=== PATIENT | female | born 1995 | race Caucasian/White ===

== ENCOUNTER 2017-02-08 04:30 | Emergency (ER) | payer OTHER ==
[2017-02-08 04:44] VITALS: BP 123/65
[2017-02-08] MEDS ORDERED: IBUP1TAB7 PO (04:52)
[2017-02-08] MEDS ORDERED: COLA100C5 PO (04:52)
[2017-02-08] MEDS ORDERED: PERCOCET PO (04:52)
[2017-02-08] MEDS ORDERED: ZOFR20TA PO (04:52)
[2017-02-08] MEDS ORDERED: MISO200T56 PO (04:52)
[2017-04-03] MEDS ORDERED: ADDE10CA3 PO (14:08)
[2017-04-03] MEDS ORDERED: VIST25CA PO (14:08)
[2017-04-03] MEDS ORDERED: LEXA1TAB PO (14:08)
[2017-04-03] MEDS ORDERED: ADDE20CA3 PO (14:08)
== END 2017-02-08 06:40 | disposition left against medical advice (07) ==
LOC: M ED 06:34
DX: R10.9 Unspecified abdominal pain (principal); Z53.21 Procedure and treatment not carried out due to patient leaving prior to being seen by health care provider

== ENCOUNTER 2017-02-12 02:21 | Emergency (ER) | payer OTHER ==
[~2017-02-12] VITALS: Ht 157.5 cm; Wt 73.0 kg
[~2017-02-12 02:21] MED LIST: COLA100C5 PO; IBUP1TAB7 PO; MISO200T56 PO; PERCOCET PO; ZOFR20TA PO
[2017-02-12 03:01] LABS: BASO % 0.3 % (0.0-1.0); EOS # 0.2 K/mm3 (0.0-0.50); EOS % 2.1 % (0.0-3.0); LARGE UNSTAINED CELL # 0.1 K/mm3 (0.0-0.4); LARGE UNSTAINED CELL % 0.7 % (0.0-4.0); LYMPH # 2.1 K/mm3 (1.5-6.5); LYMPH % 21.3 % (24.0-44.0); MEAN CORPUSCULAR HGB CONC 33.3 g/dl (32.0-36.5); MEAN CORPUSCULAR VOLUME 84.2 fl (80.0-96.0); MONO # 0.4 K/mm3 (0.0-0.8); MONO % 4.4 % (0.0-5.0); NEUTROPHILS # 6.7 K/mm3 (1.8-7.7); NEUTROPHILS % 71.2 % (36.0-66.0); PLATELET COUNT, AUTOMATED 285 k/mm3 (150-450); RED CELL DISTRIBUTION WIDTH 13.8 % (11.5-14.5); WHITE BLOOD COUNT 9.4 K/mm3 (4.0-10.0)
[2017-02-12] MEDS ORDERED: HYDROmorphone HCL 1 MG/ML SYRINGE (J1170) IM ONE ×2 (03:30→04:15)
--- NOTE | 2017-02-12 04:30 | REPUSA ---
CLINICAL HISTORY: Evaluate for retained products of conception. TECHNIQUE: Realtime sonographic images were obtained in multiple projections via TV approach. COMMENTS: The uterus is anteverted measuring 9.7x4.8x6 cm. The endometrial echo pattern is thickened measuring 21.4 mm. There is no evidence of free fluid within the pelvic cul-de-sac. The right ovary measures 2.5x1.9x2.5 cm and the left ovary measures 2.9x1.5x2.2 cm. Both ovaries are free of solid or cystic mass. There is no evidence for abnormal vascularity. The bladder is normal in size measuring 3.8x2x6.2 cm. IMPRESSION: The endometrium is thickened with blood clots in the lower uterine segment up to 2.1 cm. No definite blood flow is identified on color Doppler exam to suggest retained products of conception . This needs clinical evaluation and followup. Thank you for your kind referral of this patient.
[2017-02-12 04:37] VITALS: BP 129/77
[2017-04-03] MEDS ORDERED: ADDE10CA3 PO (14:08)
[2017-04-03] MEDS ORDERED: LEXA1TAB PO (14:08)
[2017-04-03] MEDS ORDERED: VIST25CA PO (14:08)
[2017-04-03] MEDS ORDERED: ADDE20CA3 PO (14:08)
== END 2017-02-12 04:39 | disposition home or self-care (01) ==
LOC: M ED 03:22
DX: O20.0 Threatened abortion (principal)
CPT/HCPCS: 76830; 76856; 85025; 93976; 96372; 99283; J1170

== ENCOUNTER 2017-02-13 00:59 | Emergency (ER) | payer OTHER ==
[~2017-02-13 00:59] MED LIST changes: +COLA100C3 PO; -COLA100C5 PO; -IBUP1TAB7 PO; +IBUP800T23 PO; +MISO200T3 PO; -MISO200T56 PO
[2017-02-13 01:11] VITALS: BP 128/80
== END 2017-02-13 04:15 | disposition left against medical advice (07) ==
LOC: M ED 02:00
DX: R10.9 Unspecified abdominal pain (principal); Z53.29 Procedure and treatment not carried out because of patient's decision for other reasons

== ENCOUNTER → 2017-03-25 | Outpatient (CLI) | payer OTHER ==
[~2017-03-25] MED LIST changes: +ADDE10CA3 PO; +ADDE20CA3 PO; -COLA100C3 PO; +COLA100C5 PO; +IBUP1TAB7 PO; -IBUP800T23 PO; +LEXA1TAB PO; -MISO200T3 PO; +MISO200T56 PO; +VIST25CA PO
[2017-03-25 15:39] LABS: BASO % 0.4 % (0.0-1.0); EOS # 0.2 K/mm3 (0.0-0.50); EOS % 1.8 % (0.0-3.0); LARGE UNSTAINED CELL # 0.1 K/mm3 (0.0-0.4); LARGE UNSTAINED CELL % 1.2 % (0.0-4.0); LYMPH # 2.5 K/mm3 (1.5-6.5); LYMPH % 26.7 % (24.0-44.0); MEAN CORPUSCULAR HEMOGLOBIN 27.2 pg (27.0-33.0); MEAN CORPUSCULAR HGB CONC 32.4 g/dl (32.0-36.5); MEAN CORPUSCULAR VOLUME 84.1 fl (80.0-96.0); MONO # 0.6 K/mm3 (0.0-0.8); MONO % 7.1 % (0.0-5.0); NEUTROPHILS # 5.5 K/mm3 (1.8-7.7); NEUTROPHILS % 62.8 % (36.0-66.0); PLATELET COUNT, AUTOMATED 363 k/mm3 (150-450); WHITE BLOOD COUNT 8.8 K/mm3 (4.0-10.0)
[2017-03-25 16:13] LABS: ALBUMIN 3.9 GM/DL (3.2-5.2); ALBUMIN/GLOBULIN RATIO 1.22 (1.00-1.93); ALKALINE PHOSPHATASE 72 U/L (45-117); ALT/SGPT 20 U/L (12-78); ANION GAP 8 MEQ/L (8-16); AST/SGOT 12 U/L (15-37); BILIRUBIN,TOTAL 0.2 MG/DL (0.2-1.0); BLOOD UREA NITROGEN 7 MG/DL (7-18); CALCIUM LEVEL 8.8 MG/DL (8.5-10.1); CARBON DIOXIDE LEVEL 28 MEQ/L (21-32); CHLORIDE LEVEL 105 MEQ/L (98-107); FREE T4 1.02 NG/DL (0.78-1.33); GLUCOSE, FASTING 74 MG/DL (70-105); POTASSIUM SERUM 4.1 MEQ/L (3.5-5.1); SODIUM LEVEL 141 MEQ/L (136-145); TOTAL PROTEIN 7.1 GM/DL (6.4-8.2)
[2017-03-25 16:16] LABS: ERYTHROCYTE SEDIMENTATION RATE 27 mm/hr (0-20)
== END ==
LOC: M LAB 15:05
PROVIDERS: ATTEND Internal Medicine Gastroenterology
DX: K62.5 Hemorrhage of anus and rectum (principal)

== ENCOUNTER → 2017-03-26 | Outpatient (REF) | payer OTHER | LOC: M LAB REF 09:22 | PROVIDERS: ATTEND Internal Medicine Gastroenterology | DX: K62.5 Hemorrhage of anus and rectum (principal) ==

== ENCOUNTER 2017-04-11 13:14 | Outpatient (CLI) | payer OTHER ==
[~2017-04-11] VITALS: Ht 157.5 cm; Wt 73.5 kg
[~2017-04-11 13:14] MED LIST changes: +NS 1,000 ML IV ONE
[2017-04-11] MEDS ORDERED: LIDOCAINE 2% INJ 100 MG/5 ML SDV (FOR ANES.) As Ordered ONE (14:24)
[2017-04-11] MEDS ORDERED: PROPOFOL 200 MG/20 ML VIAL As Ordered ONE ×2 (14:24→14:29)
--- NOTE | 2017-04-11 14:46 | ROOR ---
Patient Name: Shayna Jaimes Procedure Date: 04/11/2017 2:21 PM Date of : 1995 Age: 22 Room: [facility] Gender: Female Note Status: Finalized Procedure: Colonoscopy Indications: Hematochezia, Exclusion of colitis, Exclusion of Crohn's disease, Exclusion of irritable bowel syndrome, Diarrhea Providers: Brian NEAL MD Referring MD: MIRTA CHARLES MD Requesting Provider: Medicines: Monitored Anesthesia Care Complications: No immediate complications. Procedure: Pre-Anesthesia Assessment: - The heart rate, respiratory rate, oxygen saturations, blood pressure, adequacy of pulmonary ventilation, and response to care were monitored throughout the procedure. The Colonoscope was introduced through the anus and advanced to 10 cm into the ileum. The colonoscopy was performed without difficulty. The patient tolerated the procedure well. The quality of the bowel preparation was good. Findings: The perianal exam findings include non-thrombosed external hemorrhoids. The colon (entire examined portion) appeared normal. The terminal ileum appeared normal. Biopsies for histology were taken with a cold forceps from the entire colon for evaluation of microscopic colitis. Impression: - Small Non-thrombosed external hemorrhoids found on perianal exam. - The entire colon is normal. - The examined portion of the ileum was normal. - Biopsies were taken with a cold forceps from the entire colon for evaluation of microscopic colitis. - (Irritable bowel suspected, rectal bleed likely from small external hemorrhoids). Recommendation: - Use fiber, for example Citrucel, Fibercon, Konsyl or Metamucil. - Use Analpram HC Cream 2.5%: Apply externally daily for 1 week. - Use Bentyl (dicyclomine) 20 mg three to four times a day as needed for spasm and diarrhea. - Telephone endoscopist for pathology results in 2 weeks. Brian Neal MD Brian NEAL MD 04/11/2017 2:46:01 PM This report has been signed electronically. Number of Addenda: 0 Note Initiated On: 04/11/2017 2:21 PM Estimated Blood Loss: Estimated blood loss: none.
[2017-04-11 15:09] VITALS: BP 115/67
== END 2017-04-11 15:26 | disposition home or self-care (01) ==
LOC: M OPP 13:14
PROVIDERS: ATTEND Internal Medicine Gastroenterology
DX: R19.7 Diarrhea, unspecified (principal); K92.1 Melena; K62.5 Hemorrhage of anus and rectum; K64.4 Residual hemorrhoidal skin tags; R10.9 Unspecified abdominal pain; F32.9 Major depressive disorder, single episode, unspecified; F41.9 Anxiety disorder, unspecified; R51 Headache; Z87.19 Personal history of other diseases of the digestive system; F17.210 Nicotine dependence, cigarettes, uncomplicated; Z79.899 Other long term (current) drug therapy

== ENCOUNTER 2017-10-20 10:15 | Emergency (ER) | payer OTHER ==
[2017-10-20] MEDS: ONDANSETRON 4 MG ORAL DISINTEGRATING TAB (S0181) PO (10:54)
[2017-10-20 11:17] LABS: BASO % 0.3 % (0.0-1.0); EOS # 0.1 10^3/uL (0.0-0.50); EOS % 1.4 % (0.0-3.0); HEMOGLOBIN 11.7 g/dl (12.0-16.0); IMMATURE GRANULOCYTE % 0.3 % (0-3.0); LYMPH % 21.6 % (24.0-44.0); MEAN CORPUSCULAR HEMOGLOBIN 26.5 pg (27.0-33.0); MEAN CORPUSCULAR HGB CONC 32.5 g/dl (32.0-36.5); MEAN CORPUSCULAR VOLUME 81.4 fl (80.0-96.0); MONO # 0.5 10^3/uL (0.0-0.8); MONO % 5.8 % (0.0-5.0); NEUTROPHILS # 6.5 10^3/uL (1.8-7.7); NEUTROPHILS % 70.6 % (36.0-66.0); PLATELET COUNT, AUTOMATED 316 10^3/uL (150-450); RED BLOOD COUNT 4.42 10^6/uL (4.00-5.40); RED CELL DISTRIBUTION WIDTH 13.8 % (11.5-14.5); WHITE BLOOD COUNT 9.2 10^3/uL (4.0-10.0)
[2017-10-20 11:37] LABS: ALBUMIN 3.8 GM/DL (3.2-5.2); ALBUMIN/GLOBULIN RATIO 0.97 (1.00-1.93); ALKALINE PHOSPHATASE 81 U/L (45-117); ALT/SGPT 39 U/L (12-78); AMYLASE 66 U/L (25-115); ANION GAP 6 MEQ/L (8-16); AST/SGOT 24 U/L (7-37); BILIRUBIN,DIRECT < 0.1 MG/DL (0.0-0.2); BILIRUBIN,TOTAL 0.2 MG/DL (0.2-1.0); BLOOD UREA NITROGEN 9 MG/DL (7-18); CALCIUM LEVEL 8.9 MG/DL (8.5-10.1); CARBON DIOXIDE LEVEL 28 MEQ/L (21-32); CHLORIDE LEVEL 106 MEQ/L (98-107); CREATININE FOR GFR 0.59 MG/DL (0.55-1.30); GLUCOSE, FASTING 94 MG/DL (70-100); LIPASE 127 U/L (73-393); POTASSIUM SERUM 3.8 MEQ/L (3.5-5.1); SODIUM LEVEL 140 MEQ/L (136-145); TOTAL PROTEIN 7.7 GM/DL (6.4-8.2)
== END 2017-10-20 12:41 | disposition home or self-care (01) ==
LOC: M ED 10:15
DX: R19.7 Diarrhea, unspecified (principal); F32.9 Major depressive disorder, single episode, unspecified; F17.200 Nicotine dependence, unspecified, uncomplicated; Z79.899 Other long term (current) drug therapy
CPT/HCPCS: 82150